=== PATIENT | female | born 1975 | race Caucasian/White ===

== ENCOUNTER 2017-10-27 12:39 | Day surgery (SDC) | payer BC ==
[~2017-10-27] VITALS: Ht 167.6 cm; Wt 67.5 kg
[2017-10-27] VITALS (9 sets, daily range): BP systolic 105–130; BP diastolic 57–75; PULSE 63–82; RESP 16–18; TEMP 98.3–99.1; O2SAT 97–100
[~2017-10-27 12:39] MED LIST: PREN0.01 PO; PROPOFOL 200 MG/20 ML AMP IV ONE
[2017-10-27] MEDS ORDERED: PROPOFOL 200 MG/20 ML AMP OTHER ONE (12:40)
[2017-10-27] MEDS ORDERED: SODIUM CHLORID 0.9% 500 ML INJ 500 ML IV SCH (14:00)
[2017-10-27] MEDS ORDERED: ECASA81 PO (14:01)
[2017-10-27] MEDS ORDERED: ALPR0.25 PO (14:01)
[2017-10-27] MEDS ORDERED: LEXA20TA PO (14:01)
[2017-10-27] MEDS ORDERED: ATOR20TA15 PO (14:01)
[2017-10-27] MEDS ORDERED: CHOL10008 PO (14:01)
[2017-10-27] MEDS ORDERED: magnesium PO (14:01)
[2017-10-27] MEDS ORDERED: ALEV220T14 PO (14:01)
[2017-10-27] MEDS ORDERED: SODIUM CHLORID 0.9% 500 ML IV PRN (14:15)
[2017-10-27] MEDS ORDERED: METOPROLOL TARTRATE 25 MG TAB PO PRN (14:15)
[2017-10-27] MEDS ORDERED: CHLORHEXIDINE GLUCONATE 2 % 1 PACK (2 CLOTHS) TOPICAL PRN (14:15)
[2017-10-27] MEDS ORDERED: POVIDONE IODINE 5% (ANTISEPSIS KIT) 4 APPLICATIONS EACH NARE PRN (14:15)
[2017-10-27] MEDS ORDERED: LACTATED RINGER'S 1000 ML IV PRN (14:15)
[2017-10-27] MEDS ORDERED: LORazepam 1 MG TAB SL SCH (14:15)
[2017-10-27 14:26] LABS: AUTOMATED NEUTROPHIL # 6.3 TH/MM3 (1.8-7.7); BASOPHIL % 0.3 % (0.0-2.0); EOSINOPHIL % 0.3 % (0.0-4.0); HEMATOCRIT 41.8 % (35.0-46.0); HEMOGLOBIN 14.2 GM/DL (11.6-15.3); LYMPHOCYTE # 2.3 TH/MM3 (1.0-4.8); MEAN CELL VOLUME 88.7 FL (80.0-100.0); MEAN CORPUSCULAR HEMOGLOBIN 30.1 PG (27.0-34.0); MEAN PLATELET VOLUME 8.7 FL (7.0-11.0); MONO % 7.4 % (0.0-8.0); MONOCYTE # 0.7 TH/MM3 (0-0.9); PLATELET COUNT 220 TH/MM3 (150-450); RED BLOOD COUNT 4.71 MIL/MM3 (4.00-5.30); RED CELL DISTRIBUTION WIDTH 12.6 % (11.6-17.2); WHITE BLOOD COUNT 9.4 TH/MM3 (4.0-11.0)
[2017-10-27 14:34] LABS: INTERNATIONAL NORMALIZED RATIO 1.1 RATIO; PROTHROMBIN TIME - PATIENT 10.7 SEC (9.8-11.6)
[2017-10-27] MEDS ORDERED: PROPOFOL 200 MG/20 ML AMP ONE (14:34)
[2017-10-27] MEDS ORDERED: LIDOCAINE HCL 1% PF 30 ML VIAL ONE (14:37)
[2017-10-27 14:54] LABS: BICARBONATE 29.7 MEQ/L (21.0-32.0); BLOOD UREA NITROGEN 14 MG/DL (7-18); CALCIUM 8.8 MG/DL (8.5-10.1); CHLORIDE 104 MEQ/L (98-107); CREATININE 0.88 MG/DL (0.50-1.00); GLOMERULAR FILTRATION RATE 71 ML/MIN (>89); GLUCOSE,RANDOM 88 MG/DL (74-106); SODIUM (NA) 140 MEQ/L (136-145)
[2017-10-27] MEDS ORDERED: HEPARIN-NS/PF FLUSH BAG 1,000 ML IV FLUSH ONE (15:01)
[2017-10-27] MEDS ORDERED: BACITRACIN OINT 0.9 GM PKT TOP ONE (16:00)
[2017-10-27] MEDS ORDERED: ONDANSETRON HCL 4 MG/2 ML VIAL IV PUSH PRN (16:00)
[2017-10-27] MEDS ORDERED: ATROPINE SULFATE 1 MG/ML VIAL IV PUSH PRN (16:00)
[2017-10-27] MEDS ORDERED: LORazepam 2 MG/ML VIAL IV PUSH PRN (16:00)
[2017-10-27] MEDS ORDERED: LIDOCAINE HCL 1% 50 ML VIAL INFIL PRN (16:00)
[2017-10-27] MEDS ORDERED: oxyCODONE/ACETAMINOPHEN 5 MG/325 MG TAB PO PRN ×2 (16:00)
[2017-10-27] MEDS ORDERED: ALPRAZolam 0.25 MG TAB PO PRN (16:00)
[2017-10-27] MEDS ORDERED: SODIUM CHLOR 0.9% 250 ML INJ 250 ML IV PRN (16:00)
--- NOTE | 2017-10-27 16:08 | CATHPROC ---
Patient Name: JULIO DRAKE Study #: [id number] Initial MD: Earnestine Iraheta Date of : 1975 Study Date: 10/27/2017 Cardiac Catheterization Report 10/27/2017 4:08:03 PM Financial #: [id number] 1 of 9 Patient Name: JULIO DRAKE Study #: [id number] Initial MD: Earnestine Iraheta Date of : 1975 Study Date: 10/27/2017 Entire Case Report Patient Information Patient Name JULIO DRAKE Date of 1975 Age 42 years Financial # [id number] Gender F AlternateID Lab Number 2 Room Number DC07 Height (in) 66.0 Height (cm) 167.6 BSA 1.77 Weight (lbs) 148.9 Weight (kg) 67.7 Patient Address/Phone Number Home Address [facility] Home Phone Number [address] [facility] [address] Study Information Study Number Admission Scheduled Start Study Start [id number] Oct 27 2017 12:39PM 10/27/2017 Oct 27 2017 1:53PM [facility] Electrophysiology Study Admit Source Facility Department Other [facility] - Syrup Mixer Helper Physician and Clinical Staff Initial Earnestine Larry Other Anesthesia, TIPPLE OILER Recorder Yuridia Blue RN Procedures Performed Procedure Location (Site) Vessel Name Ablation Procedure RF Ablation Isthmus Other 10/27/2017 4:08:03 PM Financial #: [id number] 2 of 9 Patient Name: JULIO DRAKE Study #: [id number] Initial MD: Earnestine Iraheta Date of : 1975 Study Date: 10/27/2017 Equipment Time Academic Adviser Description Size Mfg Part Number Used/Scraped BIOSENSE GARCIA CATHETER, CELGLENUS, 4MM, D [id number] 15:29 FR 7 Used INC. TYPE QUAD *[id number] 13:55 [employer] IND[employer]RIES PACK, CCL CUSTOM * Used *[id number] 13:55 [employer] PACER SHIRLEY, LIMB * 2530 *[id number] Used [id number] 13:55 [employer] BLANKET,WARM AIR CCL * Used *[id number] 13:55 [employer] MED[employer] CATHETER, JSN, QUAD FR 5 Used *[id number] [id number] 13:55 [employer] MEDICAL CATHETER, JSN, QUAD FR 5 Used *0115792 100947 13:55 [employer] MEDICAL CATHETER, JSN, QUAD FR 5 Used *1252089 688014 13:56 [employer] MEDICAL CATHETER, JSN, QUAD FR 5 Used *[id number] 13:55 [employer] MEDICAL ELECTRODE KIT, ANJALI X SURFACE * Used *2645029 509659 13:55 [employer] MED[employer] SHEATH, EPS, FR5 FAST CATH FR 5 Used *2899921 276211 13:55 [employer] MED[employer] SHEATH, EPS, FR5 FAST CATH FR 5 Used *5000492 605843 13:55 [employer] MEDICAL SHEATH, EPS, FR5 FAST CATH FR 5 Used *5892842 814811 13:55 [employer] MEDICAL SHEATH, EPS, FR6 FAST CATH FR 6 Used *6315126 567109 13:55 [employer] MEDICAL SHEATH, EPS, FR8 FAST CATH FR 8 Used *[id number] [facility] PAD, ELECTROSURGICAL 13:55 * [id number] *[id number] Used SURGICAL GROUNDING (BLUE) Insurance Information Insurance Payor Private Health Insurance Third Republican Third Republican Number [facility] History: Risk Factors Dyslipidemia Yes Labs Hgb (g/dl) Hct (%) RBC (MIL/MM3) WBC (l/cumm) Platelets (thousands) 11.60-17.00 35.00-51.00 4.00-5.90 4.00-11.00 150.00-450.00 14.0 41 4.7 9.4 220 Glucose (mg/dl) BUN (mg/dl) Creatinine (mg/dl) BUN:Creatinine (1:x) 74.00-106.00 7.00-18.00 0.50-1.30 10.00-20.00 88 14 0.8 17.5 10/27/2017 4:08:03 PM Financial #: [id number] 3 of 9 Patient Name: JULIO DRAKE Study #: [id number] Initial MD: Earnestine Iraheta Date of : 1975 Study Date: 10/27/2017 Na (meq/l) K (meq/l) 136.00-145.00 3.50-5.10 140 3.5 INR (PTT:PT) 0.90-1.10 1.1 Medication Medication Total Dose (Bolus/Oral) Medication Total Dosage/Unit 1% XYLOCAINE 40 mL Medications (Bolus/Oral) Medication Time Given Dosage/Unit Administered By Reason 1% XYLOCAINE 10/27/2017 3:02:32 PM 20 mL Earnestine Iraheta 20 mL 1% XYLOCAINE given in lab by Earnestine Iraheta in Left Groin via Subcutaneous. 1% XYLOCAINE 10/27/2017 3:08:32 PM 20 mL Earnestine Iraheta 20 mL 1% XYLOCAINE given in lab by Earnestine Iraheta in Right Groin via Subcutaneous. Medication (Drip) Medication Time Given Dosage/Unit Concentration/Unit Diluent (ml) Solution ISUPREL 10/27/2017 3:18:00 PM 2 mcg/min 1 mg 250 NaCl .9 2 mcg/min ISUPREL given in lab by Anesthesia, TIPPLE OILER via Peripheral IV. Pump/Drip Flow = 30 ml/hr using NaCl .9 with a concentration of 1 mg in 250 ml. Ordered by Earnestine Iraheta. Reason: As per physicians verbal order. ISUPREL 10/27/2017 3:39:43 PM 1 mcg/min 1 mg 250 NaCl .9 1 mcg/min ISUPREL given in lab by Anesthesia, TIPPLE OILER via Peripheral IV. Pump/Drip Flow = 15 ml/hr using NaCl .9 with a concentration of 1 mg in 250 ml. Ordered by Earnestine Iraheta. Reason: As per physicians verbal order. 10/27/2017 4:08:03 PM Financial #: [id number] Patient Name: JULIO DRAKE Study #: [id number] Initial MD: Earnestine Iraheta Date of : 1975 Study Date: 10/27/2017 Initial Case Assessment Cardiovascular HR Rhythm NIBP Chest Pain 71 sr 118/63 0 Edema Present Skin color Skin None Normal Warm Dry Circulatory - Right Pulses Dorsalis Pedis 2 Scale (0,1,2,3,4,d) Circulatory - Left Pulses Dorsalis Pedis 2 Scale (0,1,2,3,4,d) Circulatory - Lower Extremities Color Lower Right Color Lower Left Normal Normal Neurological State Oriented to time-place- Alert Moves all extremities person Respiration - General Respiration Rate SpO2 (%) O2 (lpm) (B/min) 20 100 4 10/27/2017 4:08:03 PM Financial #: [id number] 5 of 9 Patient Name: JULIO DRAKE Study #: [id number] Initial MD: Earnestine Iraheta Date of : 1975 Study Date: 10/27/2017 Final Case Assessment Cardiovascular HR Rhythm NIBP Chest Pain 87 sr 109/64 0 Edema Present Skin color Skin None Normal Warm Dry Circulatory - Right Pulses Dorsalis Pedis 2 Scale (0,1,2,3,4,d) Circulatory - Left Pulses Dorsalis Pedis 2 Scale (0,1,2,3,4,d) Circulatory - Lower Extremities Color Lower Right Color Lower Left Normal Normal Neurological State Oriented to time-place- Alert Moves all extremities person Respiration - General Respiration Rate SpO2 (%) O2 (lpm) (B/min) 18 100 4 Chronological Log Time Study Chronological Log 14:22:25 Patient arrived via Bed. Dr Iraheta aware of all labs pending. 14:22:26 Patient Name, D.O.B, / Armband Verified By R.N. 14:22:26 Consent signed by the physician and the patient and verified by the Syrup Mixer Helper staff. 14:22:27 Pre-op and post- op instructions given; patient acknowledges understanding of instructions. 14:22:28 Verbal Stimulation=2 Physical Stimulation=2 Airway=2 Respiration=2 TOTAL=8. (0=absent, 1=li mited, 2=present) 14:22:28 Anesthesia at bedside. Assumes care of patient. Clotilde 14:22:36 Patient has been NPO for More than 6Hrs. 14:22:37 Skin Breakdown- 14:22:38 Patient Warmer Placed on the Table. 10/27/2017 4:08:03 PM Financial #: [id number] 6 of 9 Patient Name: JULIO DRAKE Study #: [id number] Initial MD: Earnestine Iraheta Date of : 1975 Study Date: 10/27/2017 14:22:39 Disposable Defibrillator Pads Placed On Patient. 14:22:41 Carola Prominences Protected 14:22:42 A # 20 IV was noted in the Antecubital (left). Grade = 0 0.9ns kvo 14:22:42 A # 20 IV was noted in the Antecubital (right). Grade = 0 0.9ns kvo 14:22:43 History and physical on the chart or being dictated. Assessment: Initial Case, HR=71 BPM, Rhythm=sr, OILV=423/63 mmhg, Chest Pain=0, Edema=None, Col or=Normal, Skin = Warm, Dry Right Pulses: Jono Ped=2 Left Pulses: Jono Ped=2 14:33:27 Lower Right Extremities: Color=Normal Lower Left Extremities: Color=Normal Neurological: State=Alert, Ox3, BLEVINS Respiration: Resp=20 B/min, RsD0=244 %, O2=4 lpm 14:36:39 Table restraints applied according to hospital policy 14:40:16 Bilateral groins prepped with 2% chlorhexidine, and draped after a 3 minute waiting time. 14:49:39 Reference ECG taken 14:59:03 MD arrived. Time Out. Correct patient, procedure, procedure equipment, site and side verified with physicia n present. Time 15:02:00 concurred by MD, individual staff and TIPPLE OILER. Time Out #2 - Consents verified, patient in correct position, all results are labled and displa yed, safety precautions 15:02:16 taken, antibiotics administered. Time out concurred by MD, individual staff and TIPPLE OILER in procedu re 15:02:30 Case Start 15:02:32 20 mL 1% XYLOCAINE given in lab by Earnestine Iraheta in Left Groin via Subcutaneous. 15:02:53 Vascular access was obtained in the Fem Vein (left). 15:03:02 Vascular access was obtained in the Fem Vein (left). 15:03:09 Vascular access was obtained in the Fem Vein (left). 15:04:12 A SHEATH, EPS, FR5 FAST CATH FR 5 was advanced into the Fem Vein (left) using the Modified Seldinger technique. 15:04:18 A SHEATH, EPS, FR5 FAST CATH FR 5 was advanced into the Fem Vein (left) using the Modified Seldinger technique. 15:04:21 A SHEATH, EPS, FR5 FAST CATH FR 5 was advanced into the Fem Vein (left) using the Modified Seldinger technique. 15:08:32 20 mL 1% XYLOCAINE given in lab by Earnestine Iraheta in Right Groin via Subcutaneous. 15:08:40 Vascular access was obtained in the Fem Vein (right). 15:08:45 Vascular access was obtained in the Fem Vein (right). 15:09:00 A SHEATH, EPS, FR6 FAST CATH FR 6 was advanced into the Fem Vein (right) using the Modified Seldinger technique. 15:09:19 A SHEATH, EPS, FR8 FAST CATH FR 8 was advanced into the Fem Vein (right) using the Modified Seldinger technique. A CATHETER, JSN, QUAD FR 5 was advanced vis Fem Vein (left) and placed in the CS. Placement was visually 15:10:58 confirmed under fluoroscopy. A CATHETER, JSN, QUAD FR 5 was advanced vis Fem Vein (left) and placed in the HIS. Placement wa s visually 15:12:09 confirmed under fluoroscopy. A CATHETER, JSN, QUAD FR 5 was advanced vis Fem Vein (left) and placed in the RVA. Placement wa s visually 15:14:18 confirmed under fluoroscopy. A CATHETER, JSN, QUAD FR 5 was advanced vis Fem Vein (right) and placed in the HRA. Placement w as visually 15:15:39 confirmed under fluoroscopy. 15:15:55 EPS in progress. 10/27/2017 4:08:03 PM Financial #: [id number] 7 of 9 Patient Name: JULIO DRAKE Study #: [id number] Initial MD: Earnestine Iraheta Date of : 1975 Study Date: 10/27/2017 2 mcg/min ISUPREL given in lab by Anesthesia, TIPPLE OILER via Peripheral IV. Pump/Drip Flow = 30 ml/hr using NaCl .9 with 15:18:00 a concentration of 1 mg in 250 ml. Ordered by Earnestine Iraheta. Reason: As per physicians verbal o rder. 15:23:24 Atrial tachycardia induced 15:23:44 Isuprel off. A CATHETER, CELSIUS, 4MM, D TYPE QUAD FR 7 was advanced vis Fem Vein (right) and placed in the Isthmus. 15:29:29 Placement was visually confirmed under fluoroscopy. 15:31:15 RF Ablation of the Isthmus with a CATHETER, CELSIUS, 4MM, D TYPE QUAD FR 7. 15:35:36 Post abl EP study. 1 mcg/min ISUPREL given in lab by Anesthesia, TIPPLE OILER via Peripheral IV. Pump/Drip Flow = 15 ml/hr using NaCl .9 with 15:39:43 a concentration of 1 mg in 250 ml. Ordered by Earnestine Iraheta. Reason: As per physicians verbal o rder. 15:46:19 Isuprel off. 15:46:30 EPS and Ablation complete. 15:47:01 All catheter(s) removed without difficulty. 15:48:00 Right groin venous sheaths removed; pressure applied to access site by DB. 15:48:16 DOCU called. Spoke to Mary 15:50:00 Left groin venous sheaths removed; pressure applied to access sites by HH. 16:03:47 Sterile dressing applied toRight groin site. Site WNL. 16:04:10 CPCU called. Spoke to Roque 16:05:00 Case End 16:05:04 Bedside Report will be given. 16:05:24 Ablation procedure performed: SVT. 16:05:30 EP Procedure was performed. 16:05:49 Sterile dressing applied to left groin site. Site wnl Assessment: Final Case, HR=87 BPM, Rhythm=sr, BQWI=404/64 mmhg, Chest Pain=0, Edema=None, Color =Normal, Skin = Warm, Dry Right Pulses: Jono Ped=2 Left Pulses: Jono Ped=2 16:06:29 Lower Right Extremities: Color=Normal Lower Left Extremities: Color=Normal Neurological: State=Alert, Ox3, BLEVINS Respiration: Resp=18 B/min, HxD3=578 %, O2=4 lpm 16:07:07 No case complications noted. 16:07:08 Cine recording checked. 16:07:10 Defibrillator and ground pads removed. Skin intact. 16:12:12 Patient moved to [facility] 10/27/2017 4:08:03 PM Financial #: [id number] 8 of 9 Patient Name: JULIO DRAKE Study #: [id number] Initial MD: Earnestine Iraheta Date of : 1975 Study Date: 10/27/2017 End Study - Contrast Media Used In Study Contrast Total Opened (mL) Total Used (mL) Total Wasted (mL) Unspecified 0 0 0 End Study - Maximum Contrast Load Max Contrast Load (mL) 423.0 End Study - Radiation Exposure Fluoro Time (minutes) 4.0 End Study - Patient Disposition Complications Transferred To Interventional Outcome No Telemetry Bed successful 10/27/2017 4:08:03 PM Financial #: [id number]
[2017-10-27] MEDS ORDERED: MIDAZOLAM HCL 2 MG/2 ML VIAL ONE (16:15)
[2017-10-27] MEDS ORDERED: ATORVASTATIN 20 MG TAB PO SCH (21:00)
[2017-10-27] MEDS: NAPROXEN 250 MG TAB PO SCH (21:00)
[2017-10-28] VITALS (12 sets, daily range): BP systolic 96–100; BP diastolic 57–67; PULSE 60–77; RESP 16–18; TEMP 97.8–98.6; O2SAT 97–99
[2017-10-28] MEDS: NAPROXEN 250 MG TAB PO SCH (08:50)
[2017-10-28] MEDS ORDERED: CHOLECALCIFEROL (VIT D3) 1000 UNIT TAB PO SCH (09:00)
[2017-10-28] MEDS ORDERED: ESCITALOPRAM OXALATE 20 MG TAB PO SCH (09:00)
[2017-10-28] MEDS ORDERED: ASPIRIN EC 81 MG TABEC PO SCH (09:00)
--- NOTE | 2017-10-28 10:58 | PD.CARD.PN ---
Subjective Subjective Remarks Post SVT ablation, doing well No complaints Telemetry with NSR Objective Medications Current Medications Medications (Trade) Dose Ordered Sig/Tammy Route Start Time Stop Time Status Last Admin Lactated Ringer's 1,000 ml @ 30 mls/hr Q24H PRN IV 10/27/17 14:15 10/30/17 14:14 Sodium Chloride 500 ml @ 30 mls/hr [id number] PRN IV 10/27/17 14:15 10/30/17 14:14 (Lopressor) 25 mg DELIVERY ENGINEER PRN PO 10/27/17 14:15 10/30/17 14:14 (Betadine 5% Antisepsis Kit) 1 applic DELIVERY ENGINEER PRN EACH NARE 10/27/17 14:15 10/30/17 14:14 (Chlorhexidine 2% Cloth) 3 pack DELIVERY ENGINEER PRN TOPICAL 10/27/17 14:15 10/30/17 14:14 Sodium Chloride 500 ml @ 30 mls/hr [id number] IV 10/27/17 14:00 (Ativan) 1 mg DELIVERY ENGINEER SL 10/27/17 14:15 10/30/17 14:14 (Percocet 5-325 Mg) 1 tab Q4H PRN PO 10/27/17 16:00 (Percocet 5-325 Mg) 2 tab Q4H PRN PO 10/27/17 16:00 (Ativan Inj) 0.5 mg UNSCH PRN IV PUSH 10/27/17 16:00 10/28/17 15:59 (Atropine Inj) 0.5 mg UNSCH PRN IV PUSH 10/27/17 16:00 Sodium Chloride 250 ml @ 500 mls/hr ONCE PRN IV 10/27/17 16:00 10/28/17 15:59 (Zofran Inj) 4 mg Q4H PRN IV PUSH 10/27/17 16:00 (Xylocaine 1% Inj (50 ml)) 10 ml UNSCH PRN INFIL 10/27/17 16:00 10/28/17 15:59 (Xanax) 0.25 mg Q4H PRN PO 10/27/17 16:00 (Ecotrin Ec) 81 mg DAILY PO 10/28/17 09:00 10/28/17 08:51 (Lipitor) 20 mg HS PO 10/27/17 21:00 10/27/17 21:00 (Vitamin D3) 1,000 units DAILY PO 10/28/17 09:00 10/28/17 08:51 (Lexapro) 20 mg DAILY PO 10/28/17 09:00 10/28/17 08:50 (Naprosyn) 250 mg BID PO 10/27/17 21:00 10/27/17 21:00 Vital Signs / I&O Vital Signs Date Time Temp Pulse Resp B/P (MAP) Pulse Ox O2 Delivery O2 Flow Rate FiO2 10/28/17 10:00 77 10/28/17 09:00 75 10/28/17 08:00 98.1 75 18 100/57 (71) 97 10/28/17 08:00 71 10/28/17 07:00 67 10/28/17 06:00 64 10/28/17 05:00 68 10/28/17 04:00 60 10/28/17 03:00 97.8 62 16 96/58 (71) 99 10/28/17 03:00 62 10/28/17 02:00 60 10/28/17 01:00 60 10/28/17 00:00 68 10/27/17 23:00 65 10/27/17 23:00 98.3 65 16 105/57 (73) 98 10/27/17 22:00 66 10/27/17 21:00 70 10/27/17 20:00 74 10/27/17 19:00 82 10/27/17 19:00 98.6 82 16 109/58 (75) 97 10/27/17 18:00 67 10/27/17 17:00 63 10/27/17 16:30 99.1 70 17 111/69 (83) 100 10/27/17 14:05 98.7 73 18 130/75 (93) 98 I/O 10/27/17 10/27/17 10/27/17 10/28/17 10/28/17 10/28/17 07:00 15:00 23:00 07:00 15:00 23:00 Intake Total 240 ml 480 ml Output Total 1300 ml Balance 240 ml -820 ml Intake Oral 240 ml 480 ml Output Urine Total 1300 ml Physical Exam GENERAL: NAD, AAOx3 SKIN: Warm and dry. HEAD: Atraumatic. Normocephalic. EYES: Pupils equal and round. No scleral icterus. No injection or drainage. ENT: No nasal bleeding or discharge. Mucous membranes pink and moist. NECK: Trachea midline. No JVD. CARDIOVASCULAR: Regular rate and rhythm. RESPIRATORY: No accessory muscle use. Clear to auscultation. Breath sounds equal bilaterally. GASTROINTESTINAL: Abdomen soft, non-tender, nondistended. Hepatic and splenic margins not palpable. MUSCULOSKELETAL: Extremities without clubbing, cyanosis, or edema. No obvious deformities. B/L groin soft, no hematoma/bruit NEUROLOGICAL: Awake and alert. No obvious cranial nerve deficits. Motor grossly within normal limits. Five out of 5 muscle strength in the arms and legs. Normal speech. PSYCHIATRIC: Appropriate mood and affect; insight and judgment normal. Laboratory Laboratory Tests Test 10/27/17 13:45 White Blood Count 9.4 TH/MM3 Red Blood Count 4.71 MIL/MM3 Hemoglobin 14.2 GM/DL Hematocrit 41.8 % Mean Corpuscular Volume 88.7 FL Mean Corpuscular Hemoglobin 30.1 PG Mean Corpuscular Hemoglobin Concent 34.0 % Red Cell Distribution Width 12.6 % Platelet Count 220 TH/MM3 Mean Platelet Volume 8.7 FL Neutrophils (%) (Auto) 67.0 % Lymphocytes (%) (Auto) 25.0 % Monocytes (%) (Auto) 7.4 % Eosinophils (%) (Auto) 0.3 % Basophils (%) (Auto) 0.3 % Neutrophils # (Auto) 6.3 TH/MM3 Lymphocytes # (Auto) 2.3 TH/MM3 Monocytes # (Auto) 0.7 TH/MM3 Eosinophils # (Auto) 0.0 TH/MM3 Basophils # (Auto) 0.0 TH/MM3 CBC Comment DIFF FINAL Differential Comment Prothrombin Time 10.7 SEC Prothromb Time International Ratio 1.1 RATIO Activated Partial Thromboplast Time 24.3 SEC Blood Urea Nitrogen 14 MG/DL Creatinine 0.88 MG/DL Random Glucose 88 MG/DL Calcium Level 8.8 MG/DL Sodium Level 140 MEQ/L Potassium Level 3.5 MEQ/L Chloride Level 104 MEQ/L Carbon Dioxide Level 29.7 MEQ/L Anion Gap 6 MEQ/L Estimat Glomerular Filtration Rate 71 ML/MIN Human Chorionic Gonadotropin, Quant LESS THAN 1 MIU/ML Assessment and Plan Problem List: (1) SVT (supraventricular tachycardia) ICD Codes: I47.1 - Supraventricular tachycardia Assessment and Plan 1) SVT/Atach ablation Doing well Cardiovascularly stable for discharge 2) Follow up with Dr. Iraheta as previously scheduled in 3 weeks Hema Valles DO Oct 28, 2017 10:58
--- NOTE | 2017-10-28 14:53 | EKG ---
Date Performed: 10/27/2017 Time Performed: 14:05:12 PTAGE: 42 years EKG: Sinus rhythm rSr'(V1) - probable normal variant Anterior T wave changes are nonspecific Borderline ECG NO PREVIOUS TRACING DOCTOR: Lamberto Rivera Interpretating Date/Time 10/28/2017 14:52:08
--- NOTE | 2017-10-28 14:53 | EKG ---
Date Performed: 10/28/2017 Time Performed: 06:12:50 PTAGE: 42 years EKG: Sinus rhythm rSr'(V1) - probable normal variant Anterior T wave changes are nonspecific Borderline ECG PREVIOUS TRACING 10/27/17 Since the previous tracing, no significant change noted DOCTOR: Lamberto Rivera Interpretating Date/Time 10/28/2017 14:52:23
--- NOTE | 2017-10-30 10:25 | MA ---
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 INDICATION: Mrs. Lala is a 42-year-old female with recurrent episodes of supraventricular tachycardia, referred for electrophysiology study and ablation. The risks, the nature and the benefit of the procedure are clearly stated to her. Risks include pneumothorax, cardiac perforation, stroke, need for open heart surgery and even . The patient understood and agreed to proceed. PROCEDURE IN DETAIL: After written informed consent was obtained, the patient was brought to the EP lab where she was prepped and draped in the usual sterile fashion. Conscious sedation was initiated and maintained throughout the procedure by anesthesiologist. Once sedation was verified, the right and left inguinal area was anesthetized with 2% Xylocaine. Using modified Seldinger technique, the left femoral vein was cannulated on 3 occasions and 3 guidewires were advanced. Over the wire three 5-[place] Hemaquets were advanced. Then, the right femoral vein was cannulated on 2 occasions. Two guidewires were advanced. Over the wire, a 6- and an 8-[place] Hemaquet were advanced. Then, under fluoroscopic guidance, through the 5- and 6-Kyr[place]z hematocrit, four 5-[place]yr[place]z Ronald curved quadripolar electrophysiology catheters were advanced and placed on the His, upper right atrium, coronary sinus and the left ventricular apex. Basic intervals were measured. They were within normal limits. At this point, atrial pacing protocol was performed. Atrial pacing protocol consisted of incremental atrial pacing as well as programmed stimulation with 110 cycle length and up to 1 extrastimuli delivered. No tachyarrhythmia was induced. Then, ventricular pacing protocol was performed. There was no VA conduction. Then Isuprel infusion was initiated at 2 mcg. During programmed stimulation in the atrium, supraventricular tachyarrhythmia with ____ of AV cassandra reentrant tachycardia was induced. It was pace terminated. Then, through the 8-Kyr[place] Hemaquet, a Cardiva Medicalter D-curved 4 mm mapping radiofrequency ablation catheter was advanced. Using Wiren Board endocardial solution mapping system, a 3-dimensional configuration of the right atrium was obtained. Then, the catheter was placed at the tricuspid valve annulus. When a big and a small trifurcated ____ observed, radiofrequency energy was delivered. The patient went into junctional rhythm. Further burn was delivered in the area. Subsequently, atrial pacing protocol was performed. No tachyarrhythmia was induced before we observed a jump of over 100 milliseconds. Then, once ventricular pacing protocol was performed, again, no tachyarrhythmia was induced. Then, Isuprel was reinitiated. Again, no tachyarrhythmia was induced during atrial and ventricular pacing protocol. At that point, the procedure was complete. All catheters were removed. The patient is going to be transferred to the recovery room. No incident to report. The patient tolerated the procedure. Blood loss minimal. 1. Electrocardiogram: At baseline, the patient was in sinus. Postprocedure electrocardiogram was unchanged. 2. Basic interval: Basic cycle length was 960 milliseconds, AH of 78 and HV at 50 milliseconds. 3. Atrial pacing protocol: Baseline Wenckebach of 430 milliseconds. 4. Ventricular pacing protocol: There was no tachyarrhythmia induced. 5. Supraclavicular tachyarrhythmia: ____ of AV cassandra reentrant tachycardia was induced. It was pace terminated ____ was mapped and ablated. Ablation was successful. 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 COMMENT AND RECOMMENDATION: Patient is going to be transferred to the telemetry unit. He will be observed, when stable can be discharged home. MD RONIT Jack//nava , 03:52 PM , 04:41 PM
== END 2017-10-28 12:21 | disposition home or self-care (01) ==
LOC: HDOC 12:39 → HDIC 12:40 → HCPC 17:21 → HDOC 10-28 12:21
PROVIDERS: ATTEND Internal Medicine Interventional Cardiology
DX: I47.1 Supraventricular tachycardia (principal); E78.5 Hyperlipidemia, unspecified; Z79.82 Long term (current) use of aspirin
CPT/HCPCS: 00537; 80048; 84702; 85025; 85610; 85730; 93005; 93613; 93623; 93653; C1730; C1732; C2630; J1644; J2250; J3010